=== PATIENT | female | born 1985 | race Two or more races ===

== ENCOUNTER 2023-04-28 23:52 | Inpatient (IN) | payer OTHER ==
[~2023-04-28] VITALS: Ht 154.9 cm; Wt 52.4 kg
[2023-04-29 00:11] LABS: ABG BASE EXCESS -30.9 mmol/L (-2.0-3.0); ABG CARBOXYHEMOGLOBIN 0.7 % (0.0-1.5); ABG METHEMOGLOBIN 0.3 % (0.0-1.5); ABG OXYGEN CONTENT 16.8 mL/dL (15.0-23.0); ABG OXYGEN SATURATION 97.9 % (95.0-98.0); ABG OXYHEMOGLOBIN 96.9 % (94.0-100.0); ABG TOTAL HEMOGLOBIN 12.1 G/dL (12.0-18.0); PO2, ARTERIAL BG 132.3 mmHg (92.0-100.0); SOURCE, BLOOD GAS ARTERIAL; TEMPERATURE, FAHRENHEIT, BG 93.1 FAHREN (96.0-98.6)
[2023-04-29 00:12] LABS: EOSINOPHILS % (AUTO) 0.1 % (1.0-6.0); HEMATOCRIT 41.6 % (36-46); HEMOGLOBIN 11.3 g/dL (12.0-16.0); LYMPHOCYTES # (AUTO) 1.6 K/uL (1.0-4.8); MEAN CORPUSCULAR HEMOGLOBIN 29.5 pg (26.0-34.0); MEAN CORPUSCULAR VOLUME 109 fL (80-100); MONOCYTES # (AUTO) 0.6 K/uL (0.1-1.0); MONOCYTES % (AUTO) 3.7 % (2.0-9.0); NEUTROPHILS # (AUTO) 14.9 K/uL (1.8-7.7); PLATELET COUNT (AUTO) 521 K/uL (150-450); RED BLOOD CELL COUNT(AUTO) 3.81 MIL/uL (4.00-5.20); RED CELL DISTRIBUTION WIDTH 15.9 % (11.5-14.5); WHITE BLOOD COUNT (AUTO) 17.2 K/uL (4.5-11.0)
[2023-04-29 00:15] LABS: ABG HCO3 4.7 mmol/L (22.0-26.0); ABG PCO2 10 mmHg (35-45); ABG PH 6.927 (7.350-7.450); SITE, BLOOD GAS RT RADIAL
[2023-04-29] MEDS ORDERED: SODIUM CHLORIDE 0.9% 1,000 ML IV ONE ×2 (00:15)
[2023-04-29 00:16] LABS: ABG A-A DIFF O2 7.3 mmHg (10-20.0); ALLEN TEST, BLOOD GAS Positive; O2 DEVICE,BLOOD GAS ROOM AIR (ROOM AIR)
[2023-04-29 00:17] LABS: APPEARANCE,URINE CLEAR (CLEAR); BILIRUBIN,URINE NEGATIVE (NEGATIVE); COLOR,URINE LIGHT YELLOW (YELLOW); GLUCOSE, URINE (UA) >=1000 mg/dL (NEGATIVE); KETONES,URINE 40-60 mg/dL (NEGATIVE); LEUKOCYTE ESTERASE ,URINE NEGATIVE (NEGATIVE); NITRATE,URINE NEGATIVE (NEGATIVE); OCCULT BLOOD,URINE NEGATIVE (NEGATIVE); PROTEIN,URINE TRACE mg/dL (NEGATIVE); SPECIFIC GRAVITIY, URINE 1.022 (1.003-1.030); UROBILINOGEN,URINE <=1.0 mg/dL (<=1.0)
[2023-04-29 00:17] LABS: NEUTROPHILS % (AUTO) 86.2 % (40.0-70.0)
[2023-04-29 00:23] LABS: ALCOHOL, URINE DRUG SCREEN NEGATIVE (NEGATIVE); AMPHET/METH SCREEN,URINE POSITIVE (NEGATIVE); BARBITURATE SCREEN, URINE NEGATIVE (NEGATIVE); BENZODIAZEPINES SCREEN,URINE NEGATIVE (NEGATIVE); CANNABINOID SCREEN,URINE NEGATIVE (NEGATIVE); COCAINE SCREEN,URINE NEGATIVE (NEGATIVE); METHADONE SCREEN, URINE NEGATIVE (NEGATIVE); OPIATE SCREEN,URINE NEGATIVE (NEGATIVE); PHENCYCLIDINE SCREEN,URINE NEGATIVE (NEGATIVE)
[2023-04-29 00:27] LABS: ALCOHOL, BLOOD (SERUM) < 3 mg/dL (0-10)
[2023-04-29 00:29] LABS: TROPONIN I-HIGH SENSITIVITY 6 ng/L (<51)
[2023-04-29 00:29] LABS: BACTERIA,URINE Moderate /HPF (None Seen); RBC,URINE None Seen /HPF (0-2); SQUAMOUS EPITHELIAL CELL,UR Moderate /LPF (None Seen); YEAST,URINE None Seen /HPF (None Seen)
[2023-04-29] MEDS ORDERED: SODIUM BICARBONATE 50 MEQ in SODIUM CHLORIDE 0.9% 1,000 ML IV ONE (00:30)
[2023-04-29 00:35] LABS: ALANINE AMINOTRANSFERASE 35 U/L (12-78); ALBUMIN 3.8 g/dL (3.4-5.0); ALKALINE PHOSPHATASE 197 U/L (46-116); ASPARTATE AMINOTRANSFERASE 23 U/L (15-37); BILIRUBIN,TOTAL 0.5 mg/dL (0.1-1.0); CALCIUM, TOTAL 9.1 mg/dL (8.8-10.5); CHLORIDE 89 mmol/L (98-107); CREATINE KINASE, TOTAL ONLY 44 U/L (26-192); GLOMERULAR FILTR. RATE CALC 22 mL/min (>60); HCG,QUANTITATIVE < 1 mIU/mL (0-6); PHOSPHORUS 8.1 mg/dL (2.5-4.9); TOTAL PROTEIN, SERUM 8.1 g/dL (6.4-8.2); UREA NITROGEN, BLOOD 38 mg/dL (7-18)
[2023-04-29 00:46] LABS: OSMOLALITY,URINE 478 mOsm/kg (50-1500)
[2023-04-29 00:47] LABS: B-TYPE NATRIURETIC PEPTIDE 84 pg/mL (0-100)
[2023-04-29 00:51] LABS: ANION GAP 30 mmol/L (8-16)
[2023-04-29 00:53] LABS: POTASSIUM 7.2 mmol/L (3.5-5.1); SODIUM SERUM 124 mmol/L (136-145)
[2023-04-29 00:54] LABS: CARBON DIOXIDE < 5 mmol/L (22-29); GLUCOSE,RANDOM 1188 mg/dL (70-110); LACTIC ACID 2.4 mmol/L (0.4-2.0)
[2023-04-29] MEDS ORDERED: POTASSIUM CHL 20 MEQ/0.45% NS 1,000 ML IV PRN (01:00)
[2023-04-29] MEDS ORDERED: INSULIN REGULAR, HUMAN 100 UNITS in SODIUM CHLORIDE 0.9% 99 ML IV PRN ×2 (01:00)
[2023-04-29] MEDS ORDERED: ACETAMINOPHEN 325 MG TABLET PO PRN (01:00)
[2023-04-29] MEDS ORDERED: INSULIN REGULAR, HUMAN 100 UNITS/ML IVP ONE ×2 (01:00→02:00)
[2023-04-29] MEDS ORDERED: SODIUM CHLORIDE 0.45% 1,000 ML IV PRN ×2 (01:00)
[2023-04-29] MEDS ORDERED: DEXTROSE 5%-0.45% SODIUM CHL 1,000 ML IV PRN (01:00)
[2023-04-29] MEDS ORDERED: ONDANSETRON HCL 4 MG/2 ML VIAL IVP PRN (01:00)
[2023-04-29] MEDS ORDERED: POTASSIUM CHLORIDE 40 MEQ in SODIUM CHLORIDE 0.45% 1,000 ML IV PRN (01:00)
[2023-04-29] MEDS ORDERED: PIPERACILLIN/TAZO 3.375 GM/D5W 50 ML IV ONE ×2 (01:00→08:00)
[2023-04-29] MEDS ORDERED: SODIUM CHLORIDE 0.9% 1,000 ML IV SCH ×2 (01:00)
[2023-04-29] MEDS ORDERED: DEXTROSE 50%-WATER 25 GM/50 ML SYRINGE IVP PRN ×2 (01:00)
[2023-04-29] MEDS ORDERED: INSULIN REGULAR, HUMAN 100 UNITS/ML IVP PRN (01:00)
[2023-04-29] MEDS ORDERED: CALCIUM GLUCONATE 100 MG/ML 10 ML IVP ONE (01:15)
[2023-04-29 01:19] LABS: CREATININE,URINE RANDOM 20.6 mg/dL (30.0-125.0)
[2023-04-29] MEDS: INSULIN REGULAR, HUMAN 100 UNITS in SODIUM CHLORIDE 0.9% 99 ML IV PRN ×10 (02:05→06:50)
[2023-04-29] MEDS ORDERED: CALCIUM GLUCONATE 0.465 MEQ/ML 10 ML VIAL ONE (02:09)
[2023-04-29] MEDS: INSULIN REGULAR, HUMAN 100 UNITS/ML IVP PRN ×4 (03:19→08:04)
[2023-04-29 03:30] LABS: CALCIUM, TOTAL 8.2 mg/dL (8.8-10.5); CREATININE 2.33 mg/dL (0.60-1.30); POTASSIUM 4.7 mmol/L (3.5-5.1)
[2023-04-29 03:36] LABS: GLUCOMETER DEV NAME(LOC) ER.6; GLUCOSE,POINT OF CARE > 600 MG/DL (70-110)
[2023-04-29 03:36] LABS: GLUCOMETER DEV NAME(LOC) ER.6; GLUCOSE,POINT OF CARE > 600 MG/DL (70-110)
[2023-04-29 03:44] LABS: MAGNESIUM 2.2 mg/dL (1.80-2.40)
[2023-04-29 03:59] LABS: COVID AG,FIA SOURCE NASOPHARYNGEAL
[2023-04-29 04:17] LABS: SARS-COV2 (COVID) ANTIGEN,FIA Negative (Negative)
[2023-04-29] MEDS: POTASSIUM CHL 20 MEQ/0.45% NS 1,000 ML IV PRN ×2 (05:40→06:54)
[2023-04-29 07:51] LABS: CALCIUM, TOTAL 8.6 mg/dL (8.8-10.5); CREATININE 1.92 mg/dL (0.60-1.30); POTASSIUM 3.7 mmol/L (3.5-5.1)
[2023-04-29] MEDS: HEPARIN SODIUM,PORCINE 5,000 UNITS/ML VIAL SQ SCH ×3 (07:59→22:58)
[2023-04-29] MEDS: FAMOTIDINE 20 MG/2 ML VIAL IVP SCH (08:00)
[2023-04-29] MEDS: PIPERACILLIN SODIUM/TAZOBACTAM 2.25 GM in DEXTROSE 5%-WATER 50 ML IV SCH ×3 (08:03→21:48)
[2023-04-29] MEDS: POTASSIUM CHLORIDE 40 MEQ in SODIUM CHLORIDE 0.45% 1,000 ML IV PRN ×2 (08:39→17:07)
[2023-04-29 08:47] LABS: GLUCOMETER DEV NAME(LOC) ER.6; GLUCOSE,POINT OF CARE > 600 MG/DL (70-110)
[2023-04-29 08:47] LABS: GLUCOMETER DEV NAME(LOC) ER.6; GLUCOSE,POINT OF CARE 313 MG/DL (70-110)
[2023-04-29 08:47] LABS: GLUCOMETER DEV NAME(LOC) ER.6; GLUCOSE,POINT OF CARE 534 MG/DL (70-110)
[2023-04-29 08:47] LABS: GLUCOMETER DEV NAME(LOC) ER.6; GLUCOSE,POINT OF CARE 446 MG/DL (70-110)
[2023-04-29 09:10] LABS: BASOPHILS % (AUTO) 0.5 % (0.0-2.0); EOSINOPHILS % (AUTO) 0 % (1.0-6.0); HEMATOCRIT 30.2 % (36-46); HEMOGLOBIN 9.8 g/dL (12.0-16.0); LYMPHOCYTES # (AUTO) 3.7 K/uL (1.0-4.8); LYMPHOCYTES % (AUTO) 23.7 % (22.0-44.0); MEAN CORPUSCULAR HGB CONC 32.6 G/dL (31.0-37.0); MEAN CORPUSCULAR VOLUME 92 fL (80-100); MONOCYTES # (AUTO) 0.5 K/uL (0.1-1.0); MONOCYTES % (AUTO) 3.5 % (2.0-9.0); NEUTROPHILS # (AUTO) 11.2 K/uL (1.8-7.7); NEUTROPHILS % (AUTO) 72.3 % (40.0-70.0); PLATELET COUNT (AUTO) 392 K/uL (150-450); RED BLOOD CELL COUNT(AUTO) 3.28 MIL/uL (4.00-5.20); RED CELL DISTRIBUTION WIDTH 14.2 % (11.5-14.5); WHITE BLOOD COUNT (AUTO) 15.5 K/uL (4.5-11.0)
[2023-04-29 09:20] LABS: BILIRUBIN,TOTAL 0.5 mg/dL (0.1-1.0); MAGNESIUM 1.8 mg/dL (1.80-2.40); PHOSPHORUS 1.8 mg/dL (2.5-4.9); TOTAL PROTEIN, SERUM 6.7 g/dL (6.4-8.2)
[2023-04-29 09:36] LABS: GLUCOMETER DEV NAME(LOC) ER.6; GLUCOSE,POINT OF CARE 196 MG/DL (70-110)
[2023-04-29 09:39] LABS: ABG BASE EXCESS -10.4 mmol/L (-2.0-3.0); ABG CARBOXYHEMOGLOBIN 0.3 % (0.0-1.5); ABG HCO3 17.2 mmol/L (22.0-26.0); ABG METHEMOGLOBIN 0.1 % (0.0-1.5); ABG OXYGEN CONTENT 15.1 mL/dL (15.0-23.0); ABG OXYGEN SATURATION 98.3 % (95.0-98.0); ABG OXYHEMOGLOBIN 97.9 % (94.0-100.0); ABG PCO2 27 mmHg (35-45); ABG PH 7.361 (7.350-7.450); ABG TOTAL HEMOGLOBIN 10.8 G/dL (12.0-18.0); PO2, ARTERIAL BG 132.5 mmHg (92.0-100.0); SOURCE, BLOOD GAS ARTERIAL
[2023-04-29 09:41] LABS: ABG A-A DIFF O2 20.5 mmHg (10-20.0); ALLEN TEST, BLOOD GAS Positive; O2 DEVICE,BLOOD GAS CANNULA (ROOM AIR); SITE, BLOOD GAS RT RADIAL
[2023-04-29 10:06] LABS: GLUCOMETER DEV NAME(LOC) ER.6; GLUCOSE,POINT OF CARE 155 MG/DL (70-110)
[2023-04-29 10:53] LABS: CALCIUM, TOTAL 8.6 mg/dL (8.8-10.5); CREATININE 1.59 mg/dL (0.60-1.30); POTASSIUM 3.7 mmol/L (3.5-5.1)
[2023-04-29 11:11] LABS: GLUCOMETER DEV NAME(LOC) ER.6; GLUCOSE,POINT OF CARE 102 MG/DL (70-110)
[2023-04-29] MEDS: DEXTROSE 5%-0.45% SODIUM CHL 1,000 ML IV PRN ×2 (11:24→22:58)
[2023-04-29 12:21] LABS: GLUCOMETER DEV NAME(LOC) ER.6; GLUCOSE,POINT OF CARE 64 MG/DL (70-110)
[2023-04-29 12:21] LABS: GLUCOMETER DEV NAME(LOC) ER.6; GLUCOSE,POINT OF CARE 65 MG/DL (70-110)
[2023-04-29 12:51] LABS: GLUCOMETER DEV NAME(LOC) ER.6; GLUCOSE,POINT OF CARE 91 MG/DL (70-110)
[2023-04-29 13:26] LABS: GLUCOMETER DEV NAME(LOC) ER.6; GLUCOSE,POINT OF CARE 106 MG/DL (70-110)
[2023-04-29] MEDS ORDERED: SODIUM CHLORIDE 0.9% 250 ML IV ONE (15:16)
[2023-04-29 15:45] LABS: CALCIUM, TOTAL 8.5 mg/dL (8.8-10.5); CREATININE 1.38 mg/dL (0.60-1.30); POTASSIUM 4.5 mmol/L (3.5-5.1)
[2023-04-29 16:00] VITALS: BP 124/85; PULSE 94; RESP 19; TEMP 97.8
[2023-04-29 19:41] LABS: GLUCOSE,POINT OF CARE 130 MG/DL (70-110)
[2023-04-29 19:41] LABS: GLUCOSE,POINT OF CARE 124 MG/DL (70-110)
[2023-04-29 19:41] LABS: GLUCOSE,POINT OF CARE 159 MG/DL (70-110)
[2023-04-29 19:41] LABS: GLUCOSE,POINT OF CARE 206 MG/DL (70-110)
[2023-04-29 19:41] LABS: GLUCOSE,POINT OF CARE 150 MG/DL (70-110)
[2023-04-29 20:00] VITALS: BP 126/82; PULSE 98; RESP 19; TEMP 98.9
[2023-04-29 20:08] LABS: CALCIUM, TOTAL 8.8 mg/dL (8.8-10.5); CREATININE 1.35 mg/dL (0.60-1.30); POTASSIUM 4.4 mmol/L (3.5-5.1)
[2023-04-29 21:46] LABS: GLUCOSE,POINT OF CARE 180 MG/DL (70-110)
[2023-04-30] VITALS: BP 123/80; PULSE 99; RESP 18; TEMP 99
[2023-04-30 00:11] LABS: GLUCOSE,POINT OF CARE 148 MG/DL (70-110)
[2023-04-30 00:49] LABS: CALCIUM, TOTAL 8.4 mg/dL (8.8-10.5); CREATININE 1.31 mg/dL (0.60-1.30)
[2023-04-30 01:46] LABS: GLUCOSE,POINT OF CARE 141 MG/DL (70-110)
[2023-04-30] MEDS: PIPERACILLIN SODIUM/TAZOBACTAM 2.25 GM in DEXTROSE 5%-WATER 50 ML IV SCH (03:35)
[2023-04-30 04:00] VITALS: BP 139/91; PULSE 93; RESP 12; TEMP 98.9
[2023-04-30] MEDS: POTASSIUM CHLORIDE 40 MEQ in SODIUM CHLORIDE 0.45% 1,000 ML IV PRN (06:02)
[2023-04-30 06:06] LABS: GLUCOSE,POINT OF CARE 136 MG/DL (70-110)
[2023-04-30 06:06] LABS: GLUCOSE,POINT OF CARE 100 MG/DL (70-110)
[2023-04-30 06:06] LABS: GLUCOSE,POINT OF CARE 114 MG/DL (70-110)
[2023-04-30 06:26] LABS: ALBUMIN 2.7 g/dL (3.4-5.0); BILIRUBIN,TOTAL 0.3 mg/dL (0.1-1.0); CALCIUM, TOTAL 8.7 mg/dL (8.8-10.5); CREATININE 1.19 mg/dL (0.60-1.30); MAGNESIUM 1.5 mg/dL (1.80-2.40); PHOSPHORUS 1.9 mg/dL (2.5-4.9); POTASSIUM 3.9 mmol/L (3.5-5.1); TOTAL PROTEIN, SERUM 6.1 g/dL (6.4-8.2)
[2023-04-30 08:00] VITALS: BP 132/95; PULSE 87; RESP 14; TEMP 98.8
[2023-04-30 08:45] LABS: CALCIUM, TOTAL 8.4 mg/dL (8.8-10.5); CREATININE 1.15 mg/dL (0.60-1.30); POTASSIUM 4.1 mmol/L (3.5-5.1)
[2023-04-30 09:20] LABS: ABG BASE EXCESS -7.6 mmol/L (-2.0-3.0); ABG CARBOXYHEMOGLOBIN 0.7 % (0.0-1.5); ABG METHEMOGLOBIN 0.3 % (0.0-1.5); ABG OXYGEN CONTENT 14.4 mL/dL (15.0-23.0); ABG OXYGEN SATURATION 97.5 % (95.0-98.0); ABG OXYHEMOGLOBIN 96.5 % (94.0-100.0); ABG PCO2 31 mmHg (35-45); ABG PH 7.373 (7.350-7.450); ABG TOTAL HEMOGLOBIN 10.5 G/dL (12.0-18.0); PO2, ARTERIAL BG 94.6 mmHg (92.0-100.0); TEMPERATURE, FAHRENHEIT, BG 98.9 FAHREN (96.0-98.6)
[2023-04-30 09:21] LABS: SITE, BLOOD GAS RT RADIAL; SOURCE, BLOOD GAS ARTERIAL
[2023-04-30 09:22] LABS: ALLEN TEST, BLOOD GAS Positive; O2 DEVICE,BLOOD GAS ROOM AIR (ROOM AIR)
[2023-04-30] MEDS: FAMOTIDINE 20 MG/2 ML VIAL IVP SCH (10:10)
[2023-04-30] MEDS: HEPARIN SODIUM,PORCINE 5,000 UNITS/ML VIAL SQ SCH ×3 (10:11→23:50)
[2023-04-30] MEDS: PIPERACILLIN/TAZO 3.375 GM/D5W 50 ML IV SCH ×3 (10:11→21:47)
[2023-04-30 11:41] LABS: GLUCOSE,POINT OF CARE 141 MG/DL (70-110)
[2023-04-30 11:41] LABS: GLUCOSE,POINT OF CARE 138 MG/DL (70-110)
[2023-04-30 11:42] LABS: GLUCOSE,POINT OF CARE 189 MG/DL (70-110)
[2023-04-30 11:42] LABS: GLUCOSE,POINT OF CARE 164 MG/DL (70-110)
[2023-04-30] MEDS ORDERED: INSULIN LISPRO 100 UNITS/ML SQ ONE (11:45)
[2023-04-30] MEDS ORDERED: DEXTROSE 50%-WATER 25 GM/50 ML SYRINGE IVP PRN (11:45)
[2023-04-30 12:00] VITALS: BP 136/90; PULSE 84; RESP 9; TEMP 98
[2023-04-30] MEDS: SODIUM CHLORIDE 0.45% 1,000 ML IV SCH ×2 (12:04→23:50)
[2023-04-30] MEDS: INSULIN GLARGINE,HUM.REC.ANLOG 100 UNITS/ML SQ SCH (12:05)
[2023-04-30 12:52] LABS: CALCIUM, TOTAL 8.5 mg/dL (8.8-10.5); CREATININE 1.02 mg/dL (0.60-1.30); POTASSIUM 4.1 mmol/L (3.5-5.1)
[2023-04-30] MEDS: INSULIN LISPRO 100 UNITS/ML SQ PRN ×3 (13:30→21:47)
[2023-04-30 16:00] VITALS: BP 125/92; PULSE 86; RESP 20; TEMP 98.2
[2023-04-30 17:15] LABS: ANION GAP 10 mmol/L (8-16); CALCIUM, TOTAL 8.7 mg/dL (8.8-10.5); CARBON DIOXIDE 20 mmol/L (22-29); CHLORIDE 108 mmol/L (98-107); GLOMERULAR FILTR. RATE CALC > 60 mL/min (>60); GLUCOSE,RANDOM 152 mg/dL (70-110); SODIUM SERUM 138 mmol/L (136-145); UREA NITROGEN, BLOOD 13 mg/dL (7-18)
[2023-04-30 17:56] LABS: GLUCOSE,POINT OF CARE 125 MG/DL (70-110)
[2023-04-30 17:56] LABS: GLUCOSE,POINT OF CARE 110 MG/DL (70-110)
[2023-04-30 17:56] LABS: GLUCOSE,POINT OF CARE 203 MG/DL (70-110)
[2023-04-30 17:56] LABS: GLUCOSE,POINT OF CARE 150 MG/DL (70-110)
[2023-04-30 20:00] VITALS: BP 127/94; PULSE 91; PULSE 98; RESP 20
[2023-04-30] MEDS ORDERED: INSULIN GLARGINE,HUM.REC.ANLOG 100 UNITS/ML SQ SCH (21:00)
[2023-04-30 22:55] LABS: ANION GAP 9 mmol/L (8-16); CALCIUM, TOTAL 8.1 mg/dL (8.8-10.5); CARBON DIOXIDE 22 mmol/L (22-29); CHLORIDE 105 mmol/L (98-107); CREATININE 0.99 mg/dL (0.60-1.30); GLOMERULAR FILTR. RATE CALC > 60 mL/min (>60); GLUCOSE,RANDOM 319 mg/dL (70-110); POTASSIUM 4.2 mmol/L (3.5-5.1); SODIUM SERUM 136 mmol/L (136-145); UREA NITROGEN, BLOOD 13 mg/dL (7-18)
[2023-05-01] VITALS: BP 132/86; PULSE 82; PULSE 86; RESP 20; TEMP 97.9
[2023-05-01 04:00] VITALS: PULSE 82
[2023-05-01] MEDS: PIPERACILLIN/TAZO 3.375 GM/D5W 50 ML IV SCH ×2 (04:22→09:22)
[2023-05-01 05:21] LABS: GLUCOSE,POINT OF CARE 178 MG/DL (70-110)
[2023-05-01] MEDS: INSULIN LISPRO 100 UNITS/ML SQ PRN ×2 (06:09→11:39)
[2023-05-01 06:11] LABS: ANION GAP 9 mmol/L (8-16); CALCIUM, TOTAL 8.4 mg/dL (8.8-10.5); CARBON DIOXIDE 23 mmol/L (22-29); CHLORIDE 105 mmol/L (98-107); CREATININE 0.83 mg/dL (0.60-1.30); GLOMERULAR FILTR. RATE CALC > 60 mL/min (>60); GLUCOSE,RANDOM 258 mg/dL (70-110); POTASSIUM 3.8 mmol/L (3.5-5.1); SODIUM SERUM 137 mmol/L (136-145); UREA NITROGEN, BLOOD 13 mg/dL (7-18)
[2023-05-01 07:01] LABS: GLUCOSE,POINT OF CARE 274 MG/DL (70-110)
[2023-05-01 07:01] LABS: GLUCOSE,POINT OF CARE 251 MG/DL (70-110)
[2023-05-01 08:00] VITALS: BP 142/97; PULSE 79; PULSE 82; RESP 12; TEMP 98.7
[2023-05-01] MEDS: FAMOTIDINE 20 MG/2 ML VIAL IVP SCH (09:20)
[2023-05-01] MEDS: HEPARIN SODIUM,PORCINE 5,000 UNITS/ML VIAL SQ SCH (09:21)
[2023-05-01] MEDS: INSULIN GLARGINE,HUM.REC.ANLOG 100 UNITS/ML SQ SCH (09:21)
[2023-05-01 11:46] LABS: GLUCOSE,POINT OF CARE 184 MG/DL (70-110)
[2023-05-01 12:00] VITALS: BP 138/96; PULSE 85; PULSE 87; RESP 14; TEMP 98.8
[2023-05-01 12:21] LABS: GLUCOSE,POINT OF CARE 271 MG/DL (70-110)
[2023-05-01] MEDS ORDERED: LEVO200 PO (15:45)
[2023-05-01] MEDS ORDERED: SIMV5TAB58 PO (15:45)
[2023-05-01] MEDS ORDERED: INSLAN SQ (15:45)
[2023-05-01] MEDS ORDERED: INSNOV SQ (15:45)
== END 2023-05-01 16:15 | disposition home or self-care (01) | DRG 420 ==
LOC: EMS 23:52 → ICU 04-29 13:41
PROVIDERS: ADMIT Internal Medicine; ATTEND Internal Medicine
DX: E11.10 Type 2 diabetes mellitus with ketoacidosis without coma (principal); N17.0 Acute kidney failure with tubular necrosis; R65.11 Systemic inflammatory response syndrome (SIRS) of non-infectious origin with acute organ dysfunction; G93.41 Metabolic encephalopathy; E43 Unspecified severe protein-calorie malnutrition; E86.0 Dehydration; Z20.822 Contact with and (suspected) exposure to COVID-19; E87.5 Hyperkalemia; F10.20 Alcohol dependence, uncomplicated; F19.10 Other psychoactive substance abuse, uncomplicated; R68.0 Hypothermia, not associated with low environmental temperature; Z68.21 Body mass index [BMI] 21.0-21.9, adult
CPT/HCPCS: 36600; 71045; 80048; 80053; 80307; 81001; 82009; 82550; 82570; 82805; 82962; 83605; 83735; 83880; 83930; 83935; 84100; 84145; 84300; 84484; 84702; 85025; 87040; 87081; 87086; 87186; 93005; 99291; G0378; G0480; J0610; J1644; J1815; J2543; J3480; J3490; J7030; J7050; J7060; 36415-L1; 36415-TC